=== PATIENT | female | born 1975 | race Caucasian/White ===

== ENCOUNTER 2019-09-14 13:52 | Outpatient (CLI) | payer OTHER ==
--- NOTE | 2019-09-17 12:26 | Mammography Report ---
BILATERAL DIGITAL DIAGNOSTIC MAMMOGRAM 3D/2D: 09/14/2019 CLINICAL: Palpable left breast lump. No prior exams were available for comparison. The tissue of both breasts is extremely dense, which l owers the sensitivity of mammography. There is a cluster of round low density asymmetries with an obscured margin in the left breast at 3 o 'clock middle depth. There also is a possible, subtle, oval equal density asymmetry with an obscured margin in the left br east at 11 o'clock middle depth. This is not well seen in additional views. This correlates as palp ated. No other significant masses, calcifications, or other findings are seen in either breast. IMPRESSION: INCOMPLETE: NEEDS ADDITIONAL IMAGING EVALUATION The cluster of round low density asymmetries in the left breast at 3 o'clock middle depth is indeterm inate. An ultrasound is recommended. The possible oval equal density asymmetry in the left breast at 11 o'clock middle depth is indetermin ate. An ultrasound is recommended. Ultrasound was performed immediately following this exam. This exam was interpreted at Station ID: [id number]. NOTE: For mammograms, a report in lay terms will be sent to the patient. Approximately 15% of breast malignancies will not be visualized mammographically. In the management of a palpable breast mass, a negative mammogram must not discourage biopsy of a clinically suspicious lesion. Electronically Signed By: Maegan corley/:09/14/2019 16:48:12 ACR BI-RADS Category 0: Incomplete 3340F PARENCHYMAL PATTERN: (VD) - The breast(s) demonstrate(s) extremely dense parenchyma, limiting the sen sitivity of mammography. BI-RADS CATEGORY: (0) - 0 Ultrasound [id number] Immediate follow-up LATERALITY: (B)
--- NOTE | 2019-09-17 12:26 | Ultrasound Report ---
LIMITED ULTRASOUND OF LEFT BREAST: 09/14/2019 CLINICAL: Palpable cyst at 11 O'C, cyst cluster at 3 O'C. Comparison is made to exam dated: 09/14/2019 mammogram - [facility]. Color flow and real-time ultrasound of the left breast 2-4 o'clock and 11 o'clock regions were perfo rmed. Mendes scale images of the real-time examination were reviewed. There is a benign 1.4 cm x 0.8 cm x 1.8 cm oval cyst in the left breast at 11 o'clock posterior depth 6 cm from the nipple. This oval cyst is anechoic. This correlates as palpated. Color flow imaging demonstrates that there is no vascularity present. There also is a benign 1.3 cm x 0.7 cm x 1.4 cm oval cyst in the left breast at 11 o'clock posterior depth 6 cm from the nipple. This correlates as palpated. Color flow imaging demonstrates that there is no vascularity present. Additionally, there are multiple benign simple cysts in the left breast superior lateral quadrant mid dle depth. These simple cysts are anechoic, ranging in size from a few mm to 1.3 cm. These correlat e with mammography findings. Color flow imaging demonstrates that there is no vascularity present. IMPRESSION: BENIGN There is no sonographic evidence of malignancy. The 1.4 cm x 0.8 cm x 1.8 cm oval cyst in the left breast at 11 o'clock posterior depth is consistent with a simple cyst and is benign. The 1.3 cm x 0.7 cm x 1.4 cm oval cyst in the left breast at 11 o'clock posterior depth is consistent with a simple cyst and is benign. The multiple simple cysts in the left breast superior lateral quadrant middle depth are benign. Return to annual mammogram screening schedule is recommended. Findings and recommendations were conveyed to the patient at time of exam. This exam was interpreted at Station ID: [id number]. Electronically Signed By: Maegan corley/:09/14/2019 16:53:30 Ultrasound BI-RADS: 2 Benign BI-RADS CATEGORY: (2) - 2 RECOMMENDATION: (ANNUAL) - Recommend routine annual screening mammography. [id number] return to screening LATERALITY: (B)
== END 2019-09-14 13:53 | disposition home or self-care (01) ==
LOC: DI 13:52
PROVIDERS: ATTEND Family Medicine
DX: N60.12 Diffuse cystic mastopathy of left breast (principal); Z80.3 Family history of malignant neoplasm of breast
CPT/HCPCS: 76642; 77066